=== PATIENT | female | born 1950 | race Caucasian/White ===

== ENCOUNTER 2017-01-14 10:46 | Outpatient (CLI) | payer MEDICARE, OTHER ==
[2017-01-14 13:33] LABS: BASOPHILS # (AUTO) 0.1 10^3/uL (0.0-0.1); BASOPHILS % (AUTO) 0.5 %; EOSINOPHILS # (AUTO) 0.3 10^3/uL (0.0-0.7); EOSINOPHILS % (AUTO) 3.3 %; HCT - HEMATOCRIT 42.6 % (37.0-47.0); HGB - HEMOGLOBIN 14.2 g/dL (12.0-16.0); LYMPHOCYTES # (AUTO) 1.6 10^3/uL (1.5-3.5); LYMPHOCYTES % (AUTO) 15.8 %; MEAN CORPUSCULAR HEMOGLOBIN 27.6 pg (27.0-31.0); MEAN CORPUSCULAR HGB CONC 33.3 g/dL (32.0-36.0); MEAN CORPUSCULAR VOLUME 82.9 fL (81.0-99.0); MEAN PLATELET VOLUME 9.5 fL (7.9-10.8); MONOCYTES # (AUTO) 0.7 10^3/uL (0.0-1.0); MONOCYTES % (AUTO) 7.5 %; NEUTROPHILS # (AUTO) 7.1 10^3/uL (1.5-6.6); NEUTROPHILS % (AUTO) 72.9 %; NUCLEATED RED BLOOD CELLS AUTO 0.1 /100WBC; RED BLOOD COUNT 5.14 10^6/uL (4.20-5.40); RED CELL DISTRIBUTION WIDTH 14.8 % (12.0-15.0); UNCORRECTED WHITE BLOOD COUNT 9.8 x10^3/uL; WHITE BLOOD COUNT 9.8 x10^3/uL (4.8-10.8)
[2017-01-14 13:49] LABS: ALBUMIN/GLOBULIN RATIO 1.3 (1.0-2.2); BILIRUBIN,TOTAL 0.7 mg/dL (0.2-1.0); CALCIUM 8.9 mg/dL (8.5-10.3); CREATININE 0.7 mg/dL (0.4-1.0); POTASSIUM 4.1 mmol/L (3.5-5.0); TOTAL PROTEIN 6.8 g/dL (6.7-8.2)
== END 2017-01-14 10:47 | disposition home or self-care (01) ==
LOC: LAB.WCP 10:46
PROVIDERS: ATTEND Internal Medicine Gastroenterology
DX: K50.00 Crohn's disease of small intestine without complications (principal)
CPT/HCPCS: 36415; 80053; 85025

== ENCOUNTER 2017-01-22 14:53 | Outpatient (CLI) | payer MEDICARE, OTHER ==
[2017-01-22 19:18] LABS: CHOLESTEROL 137 mg/dL; HDL CHOLESTEROL 46 mg/dL; LDL/HDL RATIO 1.7 (<4.4); TRIGLYCERIDES 67 mg/dL; VLDL CHOLESTEROL 13 mg/dL
== END 2017-01-22 14:54 | disposition home or self-care (01) ==
LOC: LAB.WCP 14:53
PROVIDERS: ATTEND Family Medicine
DX: Z00.00 Encounter for general adult medical examination without abnormal findings (principal); E78.5 Hyperlipidemia, unspecified
CPT/HCPCS: 36415; 80061

== ENCOUNTER 2017-04-29 15:53 | Outpatient (CLI) | payer MEDICARE, OTHER ==
--- NOTE | 2017-05-03 13:56 | Mammography Report ---
DIGITAL SCREENING MAMMOGRAM: 04/29/2017 CLINICAL INDICATION: A 66-year-old, for screening. COMPARISON: 04/2016, 08/2013, 04/2012. TECHNIQUE: Routine CC and MLO projections were obtained of the breasts. FINDINGS: Parenchymal tissue within the breasts is predominantly fatty replaced. There are no domina nt masses, suspicious microcalcifications, or secondary signs of malignancy. In comparison to the pre vious studies, there are no significant changes. IMPRESSION: NO MAMMOGRAPHIC EVIDENCE OF MALIGNANCY. NO SIGNIFICANT INTERVAL CHANGES. RECOMMENDATION: Screening mammography is recommended annually. BIRADS category 1 - negative. STANDARD QUALIFYING STATEMENTS 1. This examination was reviewed with the aid of Computed-Aided Detection (CAD). 2. A negative or benign imaging report should not delay biopsy if clinically suspicious findings are present. Consider surgical consultation if warranted. More than 5% of cancers are not identified by i maging. 3. Dense breasts may obscure an underlying neoplasm. JOB #: [id number] EXT JOB #:[id number]
== END 2017-04-29 15:54 | disposition home or self-care (01) ==
LOC: DI 15:53
PROVIDERS: ATTEND Family Medicine
DX: Z12.31 Encounter for screening mammogram for malignant neoplasm of breast (principal)
CPT/HCPCS: 77067

== ENCOUNTER 2017-12-01 10:53 | Outpatient (CLI) | payer MEDICARE, OTHER ==
[2017-12-01 18:40] LABS: BASOPHILS # (AUTO) 0.1 10^3/uL (0.0-0.1); BASOPHILS % (AUTO) 0.8 %; EOSINOPHILS # (AUTO) 0.2 10^3/uL (0.0-0.7); EOSINOPHILS % (AUTO) 2.3 %; HGB - HEMOGLOBIN 13.9 g/dL (12.0-16.0); LYMPHOCYTES # (AUTO) 1.7 10^3/uL (1.5-3.5); MEAN CORPUSCULAR HEMOGLOBIN 26.5 pg (27.0-31.0); MEAN CORPUSCULAR HGB CONC 32.2 g/dL (32.0-36.0); MEAN CORPUSCULAR VOLUME 82.2 fL (81.0-99.0); MEAN PLATELET VOLUME 9.5 fL (7.9-10.8); MONOCYTES # (AUTO) 0.6 10^3/uL (0.0-1.0); MONOCYTES % (AUTO) 6.6 %; NEUTROPHILS # (AUTO) 5.9 10^3/uL (1.5-6.6); NEUTROPHILS % (AUTO) 70.3 %; PLT - PLATELET COUNT 259 10^3/uL (130-450); RED BLOOD COUNT 5.27 10^6/uL (4.20-5.40); RED CELL DISTRIBUTION WIDTH 15.9 % (12.0-15.0); WHITE BLOOD COUNT 8.4 x10^3/uL (4.8-10.8)
[2017-12-01 18:53] LABS: ALBUMIN 3.9 g/dL (3.2-5.5); ALBUMIN/GLOBULIN RATIO 1.3 (1.0-2.2); ALKALINE PHOSPHATASE 103 IU/L (42-121); ALT ALANINE AMINOTRANSFERASE 16 IU/L (10-60); AST ASPARTATE AMINOTRANSFERASE 20 IU/L (10-42); BILIRUBIN,TOTAL 0.7 mg/dL (0.2-1.0); BUN - BLOOD UREA NITROGEN 14 mg/dL (6-20); CALCIUM 8.9 mg/dL (8.5-10.3); CARBON DIOXIDE - CO2 25 mmol/L (21-32); CHLORIDE 102 mmol/L (101-111); CHOL/HDL RATIO 3.1 (<4.4); CHOLESTEROL 175 mg/dL; CREATININE 0.7 mg/dL (0.4-1.0); GFR - MDRD 83 (>89); GLUCOSE 79 mg/dL (70-100); HDL CHOLESTEROL 56 mg/dL; LDL CHOLESTEROL,CALCULATED 100 mg/dL; LDL/HDL RATIO 1.8 (<4.4); SODIUM 137 mmol/L (135-145); VLDL CHOLESTEROL 19 mg/dL
== END 2017-12-01 10:54 | disposition home or self-care (01) ==
LOC: LAB.WCP 10:53
PROVIDERS: ATTEND Family Medicine
DX: R03.0 Elevated blood-pressure reading, without diagnosis of hypertension (principal); E78.5 Hyperlipidemia, unspecified; K50.90 Crohn's disease, unspecified, without complications; E55.9 Vitamin D deficiency, unspecified
CPT/HCPCS: 36415; 80053; 80061; 82306; 83721; 85025

== ENCOUNTER 2018-06-30 10:05 | Outpatient (CLI) | payer MEDICARE, OTHER ==
[2018-06-30 13:01] LABS: ALBUMIN/GLOBULIN RATIO 1.4 (1.0-2.2); ALKALINE PHOSPHATASE 112 IU/L (42-121); ALT ALANINE AMINOTRANSFERASE 16 IU/L (10-60); AST ASPARTATE AMINOTRANSFERASE 17 IU/L (10-42); BILIRUBIN,TOTAL 0.7 mg/dL (0.2-1.0); BUN - BLOOD UREA NITROGEN 15 mg/dL (6-20); CALCIUM 8.8 mg/dL (8.5-10.3); CARBON DIOXIDE - CO2 25 mmol/L (21-32); CHLORIDE 102 mmol/L (101-111); CHOL/HDL RATIO 3.8 (<4.4); CHOLESTEROL 200 mg/dL; CREATININE 0.7 mg/dL (0.4-1.0); GFR - MDRD 83 (>89); GLUCOSE 95 mg/dL (70-100); HDL CHOLESTEROL 52 mg/dL; LDL CHOLESTEROL,CALCULATED 125 mg/dL; LDL/HDL RATIO 2.4 (<4.4); SODIUM 137 mmol/L (135-145); TOTAL PROTEIN 6.8 g/dL (6.7-8.2); VLDL CHOLESTEROL 23 mg/dL
== END 2018-06-30 23:59 ==
LOC: LAB.WCP 10:05
PROVIDERS: ATTEND Family Medicine
DX: E78.5 Hyperlipidemia, unspecified (principal)
CPT/HCPCS: 36415; 80053; 80061; 83721

== ENCOUNTER 2018-11-28 11:43 | Outpatient (CLI) | payer MEDICARE, OTHER | END 2018-11-28 11:44 | disposition home or self-care (01) | LOC: LAB 11:43 | PROVIDERS: ATTEND Family Medicine | DX: R68.84 Jaw pain (principal) | CPT/HCPCS: 36415; 84484 ==

== ENCOUNTER 2018-12-23 08:00 | Outpatient (CLI) | payer MEDICARE, OTHER ==
[2018-12-23 13:19] LABS: H. PYLORIS ANTIGEN STL NEGATIVE (Negative)
== END 2018-12-23 08:01 | disposition home or self-care (01) ==
LOC: LAB.R 08:00
PROVIDERS: ATTEND Family Medicine
DX: R19.7 Diarrhea, unspecified (principal); K50.90 Crohn's disease, unspecified, without complications; K21.9 Gastro-esophageal reflux disease without esophagitis
CPT/HCPCS: 87338

== ENCOUNTER 2018-12-23 12:42 | Outpatient (CLI) | payer MEDICARE, OTHER ==
[2018-12-23 13:05] LABS: BASOPHILS # (AUTO) 0.1 10^3/uL (0.0-0.1); BASOPHILS % (AUTO) 0.4 %; EOSINOPHILS # (AUTO) 0.3 10^3/uL (0.0-0.7); EOSINOPHILS % (AUTO) 2.4 %; HGB - HEMOGLOBIN 14.7 g/dL (12.0-16.0); LYMPHOCYTES # (AUTO) 1.7 10^3/uL (1.5-3.5); LYMPHOCYTES % (AUTO) 14.2 %; MEAN CORPUSCULAR HGB CONC 31.7 g/dL (32.0-36.0); MEAN CORPUSCULAR VOLUME 85.1 fL (81.0-99.0); MEAN PLATELET VOLUME 10.5 fL (7.9-10.8); MONOCYTES # (AUTO) 0.6 10^3/uL (0.0-1.0); MONOCYTES % (AUTO) 4.9 %; NEUTROPHILS % (AUTO) 77.6 %; PLT - PLATELET COUNT 253 10^3/uL (130-450); RED BLOOD COUNT 5.45 10^6/uL (4.20-5.40); RED CELL DISTRIBUTION WIDTH 14.6 % (12.0-15.0); WHITE BLOOD COUNT 11.6 x10^3/uL (4.8-10.8)
[2018-12-23 13:22] LABS: ALBUMIN/GLOBULIN RATIO 1.3 (1.0-2.2); BILIRUBIN,TOTAL 0.8 mg/dL (0.2-1.0); CALCIUM 9.2 mg/dL (8.5-10.3); CREATININE 0.5 mg/dL (0.4-1.0)
== END 2018-12-23 12:43 | disposition home or self-care (01) ==
LOC: LAB 12:42
PROVIDERS: ATTEND Family Medicine
DX: R19.7 Diarrhea, unspecified (principal); K50.90 Crohn's disease, unspecified, without complications; K21.9 Gastro-esophageal reflux disease without esophagitis
CPT/HCPCS: 36415; 80053; 82150; 83690; 85025; 87338

== ENCOUNTER 2019-12-01 11:27 | Outpatient (CLI) | payer MEDICARE, OTHER ==
--- NOTE | 2019-12-01 11:35 | XRAY Report ---
Reason: BILATERAL WRIST PAIN Procedure Date: 12/01/2019 Accession Number: [id number] / [id number] Procedure: WCP - Wrist 3 View BILAT CPT Code: Final Report FULL RESULT: PROCEDURE: Wrist 3 View BILAT INDICATIONS: BILATERAL WRIST PAIN TECHNIQUE: 3 views of each wrist were acquired. COMPARISON: None FINDINGS: Bones: No fractures or dislocations. No suspicious bony lesions. Joint space narrowing and periarticular osteophyte formation at the radiocarpal, scaphotrapezial, and carpal metacarpal joints bilaterally. There is widening of the left scapholunate interval, suggestive of scapholunate ligamentous injury. There is greater than expected for a large tilt of the left lunate. Scaphoid view: Not requested Soft tissues: No suspicious soft tissue calcifications. IMPRESSION: 1. Bilateral osteoarthritis. 2. Findings suggestive of left scapholunate ligamentous injury, as well as possible left volar intercalated segmental instability. This could be further assessed with MRI arthrography, if clinically indicated. Reviewed by: Amparo Gorman MD on 12/01/2019 11:34 AM PDT Approved by: Amparo Gorman MD on 12/01/2019 11:34 AM PDT Station ID: [id number]
== END 2019-12-01 23:59 | disposition home or self-care (01) ==
LOC: DI.WCP 11:27
PROVIDERS: ATTEND Family Medicine
DX: M19.032 Primary osteoarthritis, left wrist (principal); M19.031 Primary osteoarthritis, right wrist; R93.6 Abnormal findings on diagnostic imaging of limbs

== ENCOUNTER 2020-05-21 10:18 | Outpatient (CLI) | payer MEDICARE, OTHER ==
--- NOTE | 2020-05-21 14:11 | XRAY Report ---
PROCEDURE: Shoulder 2 View RT INDICATIONS: RIGHT SHOULDER PAIN TECHNIQUE: 3 views of the shoulder were acquired. COMPARISON: None. FINDINGS: Bones: No fractures or dislocations. No suspicious bony lesions. Visualized ribs appear intact. S evere acromioclavicular degenerative narrowing is present. Mild glenohumeral narrowing is present. Soft tissues: No suspicious soft tissue calcifications. IMPRESSION: Degenerative changes most severe at the acromioclavicular joint space. Reviewed by: Heidy Trotter MD on 05/21/2020 2:10 PM PST Approved by: Heidy Trotter MD on 05/21/2020 2:10 PM PST Station ID: [id number]
== END 2020-05-21 23:59 | disposition home or self-care (01) ==
LOC: DI.WCP 10:18
PROVIDERS: ATTEND Family Medicine
DX: M19.011 Primary osteoarthritis, right shoulder (principal); E78.5 Hyperlipidemia, unspecified; E66.9 Obesity, unspecified; R04.0 Epistaxis; Z11.59 Encounter for screening for other viral diseases
CPT/HCPCS: 36415; 80053; 80061; 83036; 83721; 85025; 86803

== ENCOUNTER 2020-05-21 10:47 | Outpatient (CLI) | payer MEDICARE, OTHER ==
[2020-05-21 18:34] LABS: BASOPHILS # (AUTO) 0.1 10^3/uL (0.0-0.1); BASOPHILS % (AUTO) 0.4 %; EOSINOPHILS # (AUTO) 0.2 10^3/uL (0.0-0.7); EOSINOPHILS % (AUTO) 1.3 %; HGB - HEMOGLOBIN 15.3 g/dL (12.0-16.0); LYMPHOCYTES # (AUTO) 1.9 10^3/uL (1.5-3.5); LYMPHOCYTES % (AUTO) 16.4 %; MEAN CORPUSCULAR HEMOGLOBIN 27.7 pg (27.0-31.0); MEAN CORPUSCULAR VOLUME 89.2 fL (81.0-99.0); MEAN PLATELET VOLUME 11.4 fL (7.9-10.8); MONOCYTES # (AUTO) 0.8 10^3/uL (0.0-1.0); MONOCYTES % (AUTO) 7.1 %; NEUTROPHILS # (AUTO) 8.4 10^3/uL (1.5-6.6); NEUTROPHILS % (AUTO) 74.2 %; PLT - PLATELET COUNT 273 10^3/uL (130-450); RED BLOOD COUNT 5.53 10^6/uL (4.20-5.40); WHITE BLOOD COUNT 11.4 x10^3/uL (4.8-10.8)
[2020-05-21 18:46] LABS: ALBUMIN 3.9 g/dL (3.2-5.5); ALBUMIN/GLOBULIN RATIO 1.3 (1.0-2.2); ALKALINE PHOSPHATASE 99 IU/L (42-121); ALT ALANINE AMINOTRANSFERASE 16 IU/L (10-60); AST ASPARTATE AMINOTRANSFERASE 16 IU/L (10-42); BILIRUBIN,TOTAL 0.8 mg/dL (0.2-1.0); BUN - BLOOD UREA NITROGEN 21 mg/dL (6-20); CARBON DIOXIDE - CO2 24 mmol/L (21-32); CHLORIDE 103 mmol/L (101-111); CHOL/HDL RATIO 4.1 (<4.4); CHOLESTEROL 240 mg/dL; CREATININE 0.7 mg/dL (0.4-1.0); GLUCOSE 94 mg/dL (70-100); HDL CHOLESTEROL 58 mg/dL; LDL CHOLESTEROL,CALCULATED 163 mg/dL; LDL/HDL RATIO 2.8 (<4.4); SODIUM 138 mmol/L (135-145); TOTAL PROTEIN 6.9 g/dL (6.7-8.2); VLDL CHOLESTEROL 19 mg/dL
[2020-05-21 20:36] LABS: HEMOGLOBIN A1c% 5.6 % (4.27-6.07)
[2020-05-22 12:58] LABS: HEPATITIS C ANTIBODY NON-REACTIVE (NON-REACTIVE)
== END 2020-05-21 23:59 | disposition home or self-care (01) ==
LOC: LAB.WCP 10:47
PROVIDERS: ATTEND Family Medicine
DX: E78.5 Hyperlipidemia, unspecified (principal); E66.9 Obesity, unspecified; R04.0 Epistaxis; Z11.59 Encounter for screening for other viral diseases
CPT/HCPCS: 36415; 80053; 80061; 83036; 83721; 85025; 86803

== ENCOUNTER 2020-06-19 08:07 | Outpatient (CLI) | payer MEDICARE, OTHER ==
--- NOTE | 2020-06-19 09:31 | DEXA Report ---
PROCEDURE: Dexa Spine and/or Hip INDICATIONS: POST MENOPAUSAL TECHNIQUE: Dual energy x-ray absorptiometry (DXA) was performed on a [employer] System. Regions measur ed are the AP Spine, femoral neck, and if needed forearm. COMPARISON: None. FINDINGS: Lumbar Spine: Bone Mineral Density 0.948 g/cm/cm,T score -1.9 Left Hip: Bone Mineral Density 0.923 g/cm/cm, T score -0.7 Left Femoral Neck: Bone Mineral Density 0.865 g/cm/cm, T score -1.2 (T score greater or equal to -1.0: NORMAL) (T score from -1.1 to -2.4: OSTEOPENIA) (T score less than or equal to -2.5 to: OSTEOPOROSIS) IMPRESSION: Osteopenia in the lumbar spine and left femoral neck. Patients with diagnosis of osteoporosis or osteopenia should have regular bone mineral density assess ment. For those eligible for Medicare, routine testing is allowed once every 2 years. Testing frequ ency can be increased for patients who have rapidly progressing disease or for those who are receivin g medical therapy to restore bone mass. Reviewed by: Ciro Jansen MD on 06/19/2020 8:30 AM MARIE Approved by: Ciro Jansen MD on 06/19/2020 8:[address] [facility] Station ID: [id number]
== END 2020-06-19 08:08 | disposition home or self-care (01) ==
LOC: DI 08:07
PROVIDERS: ATTEND Family Medicine
DX: M85.89 Other specified disorders of bone density and structure, multiple sites (principal); Z78.0 Asymptomatic menopausal state

== ENCOUNTER 2020-08-02 13:52 | Outpatient (CLI) | payer MEDICARE, OTHER ==
--- NOTE | 2020-08-05 11:45 | Mammography Report ---
BILATERAL DIGITAL SCREENING MAMMOGRAM 3D/2D: 08/02/2020 CLINICAL: Routine screening. Comparison is made to exams dated: 04/29/2017 mammogram, 04/20/2016 mammogram, and 04/25/2012 mammogr am - [facility]. The tissue of both breasts is predominantly fatty. No significant masses, calcifications, or other findings are seen in either breast. There has been no significant interval change. IMPRESSION: NEGATIVE There is no mammographic evidence of malignancy. A 1 year screening mammogram is recommended. This exam was interpreted at Station ID: [id number]. NOTE: For mammograms, a report in lay terms will be sent to the patient. Approximately 15% of breast malignancies will not be visualized mammographically. In the management of a palpable breast mass, a negative mammogram must not discourage biopsy of a clinically suspicious lesion. Electronically Signed By: Beltran Myers acr/penrad:08/02/2020 15:11:45 ACR BI-RADS Category 1: Negative 3341F PARENCHYMAL PATTERN: (F) - The breast(s) demonstrate(s) diffuse fatty replacement. BI-RADS CATEGORY: (1) - 1 RECOMMENDATION: (ANNUAL) - Recommend routine annual screening mammography. [id number] 1 year screening LATERALITY: (B)
== END 2020-08-02 13:53 | disposition home or self-care (01) ==
LOC: DI 13:52
DX: Z12.31 Encounter for screening mammogram for malignant neoplasm of breast (principal)

== ENCOUNTER 2021-01-14 08:17 | Outpatient (CLI) | payer MEDICARE, OTHER | END 2021-01-14 23:59 | disposition home or self-care (01) | LOC: LAB.WCP 08:17 | PROVIDERS: ATTEND Internal Medicine Gastroenterology | DX: K50.90 Crohn's disease, unspecified, without complications (principal) | CPT/HCPCS: 81335; 81599 ==

== ENCOUNTER 2021-07-30 07:35 | Outpatient (CLI) | payer MEDICARE, OTHER ==
[2021-07-30 12:30] LABS: BASOPHILS # (AUTO) 0.1 10^3/uL (0.0-0.1); BASOPHILS % (AUTO) 0.4 %; EOSINOPHILS # (AUTO) 0.1 10^3/uL (0.0-0.7); EOSINOPHILS % (AUTO) 0.8 %; HCT - HEMATOCRIT 45.7 % (37.0-47.0); HGB - HEMOGLOBIN 14.5 g/dL (12.0-16.0); LYMPHOCYTES # (AUTO) 1.8 10^3/uL (1.5-3.5); LYMPHOCYTES % (AUTO) 13.3 %; MEAN CORPUSCULAR HGB CONC 31.7 g/dL (32.0-36.0); MEAN CORPUSCULAR VOLUME 85.1 fL (81.0-99.0); MEAN PLATELET VOLUME 11.8 fL (7.9-10.8); MONOCYTES # (AUTO) 0.7 10^3/uL (0.0-1.0); MONOCYTES % (AUTO) 5.3 %; NEUTROPHILS # (AUTO) 10.7 10^3/uL (1.5-6.6); NEUTROPHILS % (AUTO) 79.7 %; PLT - PLATELET COUNT 317 10^3/uL (130-450); RED BLOOD COUNT 5.37 10^6/uL (4.20-5.40); RED CELL DISTRIBUTION WIDTH 14.6 % (12.0-15.0); WHITE BLOOD COUNT 13.4 x10^3/uL (4.8-10.8)
[2021-07-30 12:46] LABS: ALBUMIN 4.1 g/dL (3.2-5.5); ALBUMIN/GLOBULIN RATIO 1.5 (1.0-2.2); ALKALINE PHOSPHATASE 102 IU/L (42-121); ALT ALANINE AMINOTRANSFERASE 17 IU/L (10-60); AST ASPARTATE AMINOTRANSFERASE 16 IU/L (10-42); BILIRUBIN,TOTAL 0.9 mg/dL (0.2-1.0); BUN - BLOOD UREA NITROGEN 17 mg/dL (6-20); CALCIUM 9.1 mg/dL (8.5-10.3); CARBON DIOXIDE - CO2 27 mmol/L (21-32); CHLORIDE 103 mmol/L (101-111); CHOL/HDL RATIO 2.5 (<4.4); CHOLESTEROL 142 mg/dL; CREATININE 0.8 mg/dL (0.4-1.0); GFR - MDRD 70 (>89); GLUCOSE 109 mg/dL (70-100); HDL CHOLESTEROL 56 mg/dL; LDL CHOLESTEROL,CALCULATED 75 mg/dL; LDL/HDL RATIO 1.3 (<4.4); POTASSIUM 4.5 mmol/L (3.5-5.0); SODIUM 140 mmol/L (135-145); TOTAL PROTEIN 6.9 g/dL (6.7-8.2); TRIGLYCERIDES 56 mg/dL; VLDL CHOLESTEROL 11 mg/dL
[2021-07-30 12:57] LABS: THYROID STIMULATING HORMONE 2.11 uIU/mL (0.34-5.60)
== END 2021-07-30 07:36 | disposition home or self-care (01) ==
LOC: LAB.N 07:35
PROVIDERS: ATTEND Family Medicine
DX: E78.5 Hyperlipidemia, unspecified (principal); Z13.29 Encounter for screening for other suspected endocrine disorder
CPT/HCPCS: 36415; 80053; 80061; 83721; 84443; 85025

== ENCOUNTER 2021-09-12 08:00 | Outpatient (CLI) | payer MEDICARE, OTHER | END 2021-09-12 23:59 | disposition home or self-care (01) | LOC: LAB.N 08:00 | PROVIDERS: ATTEND Nurse Practitioner | DX: R30.0 Dysuria (principal) | CPT/HCPCS: 87086; 87181 ==

== ENCOUNTER 2021-09-22 08:39 | Outpatient (CLI) | payer MEDICARE, OTHER ==
[2021-09-22 12:11] LABS: BASOPHILS # (AUTO) 0.1 10^3/uL (0.0-0.1); BASOPHILS % (AUTO) 0.4 %; EOSINOPHILS # (AUTO) 0.2 10^3/uL (0.0-0.7); EOSINOPHILS % (AUTO) 1.5 %; HCT - HEMATOCRIT 45.2 % (37.0-47.0); HGB - HEMOGLOBIN 14.1 g/dL (12.0-16.0); LYMPHOCYTES # (AUTO) 1.9 10^3/uL (1.5-3.5); LYMPHOCYTES % (AUTO) 14.2 %; MEAN CORPUSCULAR HEMOGLOBIN 26.8 pg (27.0-31.0); MEAN CORPUSCULAR HGB CONC 31.2 g/dL (32.0-36.0); MEAN CORPUSCULAR VOLUME 85.9 fL (81.0-99.0); MEAN PLATELET VOLUME 11.6 fL (7.9-10.8); MONOCYTES # (AUTO) 0.7 10^3/uL (0.0-1.0); MONOCYTES % (AUTO) 5.5 %; NEUTROPHILS # (AUTO) 10.4 10^3/uL (1.5-6.6); NEUTROPHILS % (AUTO) 77.1 %; PLT - PLATELET COUNT 305 10^3/uL (130-450); RED BLOOD COUNT 5.26 10^6/uL (4.20-5.40); RED CELL DISTRIBUTION WIDTH 14.7 % (12.0-15.0); WHITE BLOOD COUNT 13.5 x10^3/uL (4.8-10.8)
[2021-09-22 12:44] LABS: ALBUMIN 4.2 g/dL (3.2-5.5); ALBUMIN/GLOBULIN RATIO 1.3 (1.0-2.2); BILIRUBIN,TOTAL 1.1 mg/dL (0.2-1.0); CALCIUM 9.3 mg/dL (8.5-10.3); CREATININE 0.7 mg/dL (0.4-1.0); POTASSIUM 4.3 mmol/L (3.5-5.0); TOTAL PROTEIN 7.5 g/dL (6.7-8.2)
== END 2021-09-22 08:40 | disposition home or self-care (01) ==
LOC: LAB.N 08:39
DX: K50.90 Crohn's disease, unspecified, without complications (principal)
CPT/HCPCS: 36415; 80053; 85025

== ENCOUNTER 2021-10-28 09:16 | Outpatient (CLI) | payer MEDICARE, OTHER ==
[2021-10-28 11:37] LABS: BASOPHILS # (AUTO) 0.1 10^3/uL (0.0-0.1); BASOPHILS % (AUTO) 0.5 %; EOSINOPHILS # (AUTO) 0.2 10^3/uL (0.0-0.7); EOSINOPHILS % (AUTO) 1.7 %; HCT - HEMATOCRIT 44.4 % (37.0-47.0); HGB - HEMOGLOBIN 13.9 g/dL (12.0-16.0); LYMPHOCYTES # (AUTO) 2.2 10^3/uL (1.5-3.5); LYMPHOCYTES % (AUTO) 19.8 %; MEAN CORPUSCULAR HEMOGLOBIN 27.1 pg (27.0-31.0); MEAN CORPUSCULAR HGB CONC 31.3 g/dL (32.0-36.0); MEAN CORPUSCULAR VOLUME 86.5 fL (81.0-99.0); MEAN PLATELET VOLUME 11.2 fL (7.9-10.8); MONOCYTES % (AUTO) 8.5 %; NEUTROPHILS # (AUTO) 7.6 10^3/uL (1.5-6.6); NEUTROPHILS % (AUTO) 68.4 %; PLT - PLATELET COUNT 323 10^3/uL (130-450); RED BLOOD COUNT 5.13 10^6/uL (4.20-5.40); WHITE BLOOD COUNT 11.1 x10^3/uL (4.8-10.8)
[2021-10-28 12:52] LABS: ALBUMIN 3.8 g/dL (3.2-5.5); ALBUMIN/GLOBULIN RATIO 1.3 (1.0-2.2); ALKALINE PHOSPHATASE 122 IU/L (42-121); ALT ALANINE AMINOTRANSFERASE 18 IU/L (10-60); AST ASPARTATE AMINOTRANSFERASE 15 IU/L (10-42); BILIRUBIN,TOTAL 0.7 mg/dL (0.2-1.0); BUN - BLOOD UREA NITROGEN 22 mg/dL (6-20); CALCIUM 8.9 mg/dL (8.5-10.3); CARBON DIOXIDE - CO2 24 mmol/L (21-32); CHLORIDE 107 mmol/L (101-111); CREATININE 0.8 mg/dL (0.4-1.0); GFR - MDRD 70 (>89); GLUCOSE 114 mg/dL (70-100); POTASSIUM 3.6 mmol/L (3.5-5.0); SODIUM 141 mmol/L (135-145); TOTAL PROTEIN 6.7 g/dL (6.7-8.2)
[2021-10-28 12:53] LABS: CRP - C-REACTIVE PROTEIN < 1.0 mg/dL (0-1.0)
== END 2021-10-28 09:17 | disposition home or self-care (01) ==
LOC: LAB.N 09:16
PROVIDERS: ATTEND Physician Assistant
DX: K50.90 Crohn's disease, unspecified, without complications (principal)
CPT/HCPCS: 36415; 80053; 85025; 86140; 86708

== ENCOUNTER 2022-01-08 08:00 | Outpatient (CLI) | payer MEDICARE, OTHER | END 2022-01-08 23:59 | disposition home or self-care (01) | LOC: LAB.N 08:00 | PROVIDERS: ATTEND Registered Nurse | DX: N39.0 Urinary tract infection, site not specified (principal) | CPT/HCPCS: 87077; 87086; 87181 ==

== ENCOUNTER 2022-02-13 08:00 | Outpatient (CLI) | payer MEDICARE, OTHER | END 2022-02-13 23:59 | disposition home or self-care (01) | LOC: LAB.N 08:00 | PROVIDERS: ATTEND Family Medicine | DX: N39.0 Urinary tract infection, site not specified (principal) | CPT/HCPCS: 87086; 87181 ==

== ENCOUNTER 2022-04-03 10:56 | Outpatient (CLI) | payer MEDICARE, OTHER ==
--- NOTE | 2022-04-03 13:07 | XRAY Report ---
PROCEDURE: Wrist 3 View RT INDICATIONS: PAIN IN RIGHT WRIST TECHNIQUE: 3 views of the wrist were acquired. COMPARISON: Wrist radiographs 12/01/2019 FINDINGS: Bones: No acute fractures or dislocations. No suspicious bony lesions. Severe degenerative changes are seen at the carpometacarpal joint with subchondral sclerosis, marginal osteophyte formation, and remodeling of the articular surfaces as well as joint space narrowing. Degenerative changes are also seen at the triscaphe the radiocarpal articulations. Cystic changes are seen within the distal ulna and ulnar styloid. There is generalized osteopenia. Soft tissues: No suspicious soft tissue calcifications. IMPRESSION: Degenerative changes in the wrists are worst and severe at the first carpometacarpal joint, and appea r mildly progressed when compared to the radiographs from 12/01/2019. Reviewed by: Jorden Nails MD on 04/03/2022 1:05 PM PDT Approved by: Jorden Nails MD on 04/03/2022 1:05 PM PDT Station ID: [id number]
== END 2022-04-03 10:57 | disposition home or self-care (01) ==
LOC: DI 10:56
PROVIDERS: ATTEND Registered Nurse
DX: M19.031 Primary osteoarthritis, right wrist (principal)

== ENCOUNTER 2022-07-24 13:15 | Outpatient (CLI) | payer MEDICARE, OTHER ==
--- NOTE | 2022-07-27 09:50 | Mammography Report ---
BILATERAL DIGITAL SCREENING MAMMOGRAM 3D/2D: 07/24/2022 CLINICAL: Routine screening. Comparison is made to exams dated: 08/02/2020 mammogram, 04/29/2017 mammogram, and 04/20/2016 mammogra m - [facility]. Both breasts are almost entirely fatty (category a/<25% glandular tissue). No significant masses, calcifications, or other findings are seen in either breast. There has been no significant interval change. IMPRESSION: NEGATIVE There is no mammographic evidence of malignancy. A 1 year screening mammogram is recommended. Based on the Tyrer Cuzick model (a risk assessment model) the patients lifetime risk is 2.4% and her 10 year risk is 2.2%. According to the ACR, ACS, and NCCN guidelines, an annual breast MRI exam blaze g with mammogram is recommended if the patients lifetime risk is 20% or greater. This exam was interpreted at Station ID: [id number]. NOTE: For mammograms, a report in lay terms will be sent to the patient. Approximately 15% of breast malignancies will not be visualized mammographically. In the management of a palpable breast mass, a negative mammogram must not discourage biopsy of a clinically suspicious lesion. Electronically Signed By: Genaro Mcdaniel M.D., jr/nuria:07/24/2022 15:11:01 ACR BI-RADS Category 1: Negative 3341F PARENCHYMAL PATTERN: (F) - The breast(s) demonstrate(s) diffuse fatty replacement. BI-RADS CATEGORY: (1) - 1 RECOMMENDATION: (ANNUAL) - Recommend routine annual screening mammography. [id number] 1 year screening LATERALITY: (B)
== END 2022-07-24 13:16 | disposition home or self-care (01) ==
LOC: DI 13:15
DX: Z12.31 Encounter for screening mammogram for malignant neoplasm of breast (principal)

== ENCOUNTER 2022-10-20 08:45 | Outpatient (CLI) | payer MEDICARE, OTHER ==
[2022-10-20 09:37] VITALS: BP 117/64
--- NOTE | 2022-10-20 09:37 | SLEEP CARE CONSULTATION ---
Information from patient questionnaire entered by Vianney Jimenez. I have reviewed and concur with the information entered by Vianney Jimenez. This document represents the service I personally performed and the decisions made by me, Yumiko Calderon ARNP. History of Present Illness Service Date and Time: 10/20/2022 0845 Reason for Visit: New patient Accompanied by: Spouse (Genaro) Chief Complaint: reports: Excessive daytime sleepiness, Observed pauses in breathing, Fatigue Date of Onset: 6-12 MONTHS Usual bedtime: 11PM Time it takes to fall asleep: 5-10MIN Snores at night: Yes Observed to quit breathing while asleep: Yes Sleeps alone due to snoring: No Number of times waking at night: 1-2 Reasons for waking at night: reports: Pain (occasinally), Bathroom. denies: Choking, Snoring, Gasping for air Toss, Turn, or Twitch while sleeping: Yes Recalls having dreams: Yes Usually gets out of bed at: 7-8AM Feels refreshed in the morning: Yes (sometimes) Morning headache: No Sleepy or fatigued during the day: No Ever fallen asleep while driving: No Takes day naps: Yes (3-4 times a week, 1 hour) Prior sleep studies: No Additional HPI information: I had the pleasure of seeing GABRIEL PRICE today regarding the possibility of her having a sleep disorder. Her current complaints are excessive daytime sleepiness and fatigue. She states she gets up at night and is not sleeping well. She had a knee replacement 4 weeks ago. Her has told her that she stoppled breathing sometimes. She will snore occasionally. She does not always wake up feeling refreshed. - Parasomnia Symptoms Ever been unable to move upon waking from sleep: No Walks in sleep: No Talks in sleep: No Ever acted out dreams in sleep: No Ever felt weak in the knees when startled or emotional: No Bothered by creepy, crawly, restless sensations in legs: No Problems with memory or concentration: Yes (occasionally) Subjective Initial [place] Sleepiness Scale score: 8 (08/25/22) Past Medical History Past Medical History: reports: Other (CROHNS, MIGRAINES; occ heartburn; lindsay knee replacements; borderline Htn, pancreatitis with atrial fibrillation) Social History The patient's occupation is a RE. Patient is and lives in [place]. Have you smoked in the past 12 months: No Alcohol use: Yes Alcohol amount and frequency: 1 GLASS A WEEK Caffeine use: Yes Caffeine amount and frequency: COFFEE 1-2 CUPS DAILY Family History Family history of sleep disordered breathing: Yes Family Hx Sleep Apnea: Father: Snoring Allergies and Home Medications Known drug allergies: Yes (SULFUR) Drug allergies reviewed: Yes Home medication list reviewed: Yes Allergy and home medication list: Allergies Sulfa (Sulfonamide Antibiotics) Adverse Reaction (Mild, Verified 10/19/22 08:35) Anxiety Hyperactivity Medications: HCTZ Pantoprozole Eliquis Atorvastatin Metroprolol Despiramine Vitamin D Fish oil Entybio infusin for crohns Review of Systems Weight gain over past 5 years: 5 Weight loss over past 5 years: 5 Cardiovascular: reports: leg or foot swelling. denies: high blood pressure Gastrointestinal: reports: nausea, diarrhea Neurological: reports: headaches Psychiatric: denies: anxiety, depression Ear/Nose/Throat: reports: sinus problems, tonsillectomy, wisdom teeth removed Endocrine: reports: too hot or cold Musculoskeletal: reports: neck pain Immunologic: reports: sneezing Physical Exam Vital signs obtained and entered by: DAVID Sanches Blood Pressure: 117/64 (left arm) Cuff size: long Heart Rate: 80 O2 Saturation: 99 Height: 5 ft 5 in Weight: 224 lb Body Mass Index: 37.3 BMI Classification: Obese Neck circumference: 14.5 Mouth and throat: narrow oropharynx Soft palate: long Hard palate: normal Uvula: normal Uvula visualization: 25% Mallampati Class III Tongue: enlarged in size with teeth dean on lateral edges Tonsils: absent bilaterally Neck: normal w/o lymphadenopathy or thyromegaly Heart: regular rate and rhythm Lungs: clear bilaterally Impression and Plan 1. Suspected Obstructive Sleep Apnea-Hypopnea Syndrome, as suggested by a history of irregular snoring, observed cessation of breath while asleep, unrefreshed sleep, cognitive impairment, and excessive daytime sleepiness. Narrow oropharynx and obesity are common predisposing factors for obstructive sleep apnea-hypopnea syndrome. I recommend proceeding to polysomnography to confirm the diagnosis and to assess severity. If the patient has significant sleep disordered breathing, a manual CPAP titration study will also be performed to find the optimal treatment pressure. I informed the patient of what the sleep studies involve and after some discussion, obtained agreement to proceed. The pathophysiology of obstructive sleep apnea-hypopnea syndrome was discussed with the patient and health risks of cardiovascular and cerebrovascular disease if not treated. Risks of drowsy driving discussed in detail and patient advised to avoid long distance driving and to extractor puller at the first sign of drowsiness. Patient agreed to plan. * Schedule polysomnography +- manual CPAP titration study and return in 1-2 weeks after the study to discuss result and initiate therapy. * Avoid long distance driving or driving when feeling sleepy. * Avoid alcohol, sedative and muscle relaxant around bedtime. * Attempt to lose weight. * Review instructions provided by trained office staff on how to prepare for the sleep study. * Return for follow-up after sleep study completed. Counseling Topics: Weight loss health impact Visit Type: In Office Other Participants: Spouse/Significant Other Time Spent with Patient (minutes): 36 Provider Statement: I spent 100% of the Face to Face Visit with the patient with greater than 50% spent counseling the patient and coordination of care.
== END 2022-10-20 08:46 | disposition home or self-care (01) ==
LOC: SC 08:45
PROVIDERS: ATTEND Nurse Practitioner Family
DX: G47.10 Hypersomnia, unspecified (principal); R41.89 Other symptoms and signs involving cognitive functions and awareness; G47.8 Other sleep disorders; R06.81 Apnea, not elsewhere classified; R06.83 Snoring; E66.9 Obesity, unspecified; Z68.37 Body mass index [BMI] 37.0-37.9, adult
CPT/HCPCS: 99203; G0463; 99212

== ENCOUNTER 2022-10-27 20:31 | Outpatient (CLI) | payer MEDICARE, OTHER | END 2022-10-27 20:32 | disposition home or self-care (01) | LOC: SC 20:31 | PROVIDERS: ATTEND Nurse Practitioner Family | DX: G47.33 Obstructive sleep apnea (adult) (pediatric) (principal); R09.02 Hypoxemia | CPT/HCPCS: 95810 ==

== ENCOUNTER 2022-11-18 11:33 | Outpatient (CLI) | payer MEDICARE, OTHER ==
--- NOTE | 2022-11-18 15:26 | SLEEP CARE CONSULTATION ---
Information from patient questionnaire entered by Vianney Jimenez. I have reviewed and concur with the information entered by Vianney Jimenez. This document represents the service I personally performed and the decisions made by me, Yumiko Calderon ARNP. History of Present Illness Service Date and Time: 11/18/2022 1133 Initial [place] Sleepiness Scale score: 8 Current [place] Sleepiness Scale score: 5 (11/18/22) Additional HPI information: GABRIEL PRICE returns for follow up and results of the recently performed polysomnography. I explained the pathophysiology behind obstructive sleep apnea. We then spent quite a bit of time discussing different treatment options. For mild obstructive sleep apnea, surgery and oral appliance are alternatives to nasal CPAP therapy but in moderate or severe cases, nasal CPAP is the most effective and reliable treatment. I reviewed the impact of weight changes on sleep apnea and strongly recommended losing weight. After some discussion, the patient opted to go with the nasal CPAP therapy. Nasal autoCPAP set at 4-15 cmH20 will be ordered with rationale explained. A manual titration study will be ordered if unable to find optimal pressure with office adjustments. I explained how CPAP machine works and what to expect when using the machine. Using CPAP every night in order to get used to it was emphasized. Patient advised to put CPAP mask on before getting into bed so as not to fall asleep without CPAP. To assist acclimation to CPAP use, it could also be used for a short time during day while reading or watching TV. The patient was instructed to call the CPAP supplier to discuss any mechanical problem that may occur. If the mask given is uncomfortable or is difficult to keep on through the night even with adjustment, contact the CPAP supplier as many will replace with another mask style if notified before 30 days. If snoring or perceives is not getting enough air or too much air from the machine, notify this office. Patient was cautioned about risks of drowsy driving until sleepiness symptoms resolve. Sleep Study - Results Type of Sleep Study: Polysomnography (COMPLETED 10/27/22) Prior sleep studies: No Polysomnography/Home Sleep Study results: IMPRESSION: The quality of the study is good. The patient had reduced sleep eff iciency due to prolonged awakening in the middle of the night. The sleep architecture was abnormal for sleep fragmentation and reduced amount of time spent in REM and slow wave sleep (N3). Respiratory monitoring showed moderate obstructive sleep apnea-hypopnea (AHI = 25.6) associated with frequent arousals, oxyhemoglobin desaturation and severe hypoxia (nicole oxygen saturation of 52%). Baseline oxygen saturation was 90% but occasionally down to 87%. The respiratory events occurred predominantly during supine REM sleep (supine AHI = 29.3; non-supine = 20.78). Snore was moderate to loud in intensity. There was no significant periodic leg movement of sleep. Cardiac rhythm was normal sinus rhythm with occasional mild sinus tachycardia. No abnormal behavior (parasomnia) observed during the night. Allergies and Home Medications Known drug allergies: Yes (sulfa) Drug allergies reviewed: Yes Home medication list reviewed: Yes (no changes) Allergy and home medication list: Allergies Sulfa (Sulfonamide Antibiotics) Adverse Reaction (Mild, Verified 11/17/22 13:42) Anxiety Hyperactivity Review of Systems Review of systems same as previous: Yes (no changes) Physical Exam Vital signs obtained and entered by: VIANNEY Cheema MA Blood Pressure: 126/80 (LEFT ARM) Cuff size: regular Heart Rate: 84 O2 Saturation: 96 Height: 5 ft 5 in Weight: 222 lb 12.8 oz Body Mass Index: 37.0 BMI Classification: Obese Impression and Plan 1. Obstructive Sleep Apnea-Hypopnea Syndrome, moderate, with lowest oxygen saturation of 52%. Obviously this is the cause of the patients symptoms of unrefreshed sleep, and excessive daytime sleepiness. Positive pressure therapy could benefit borderline hypertension, atrial fibrillation and migraines. As mentioned above, the patient will be started on nasal autoCPAP therapy with pressure set at 4-15 cmH2O. A manual titration study will be completed if unable to find optimal treatment pressure with office adjustments. Compliance guidelines also reviewed. A copy of compliance guidelines will be given for reference at check out. 2. Hypoxemia, severe. Patient had baseline oxygen level at 90% with occasional desaturation to 87% and nicole oxygen saturation of 54%. She spent 89.1 minutes under 90% during the study. She was advised to follow up with dimension warehouse supervisor for further evaluation of nocturnal hypoxemia. * Nasal auto CPAP therapy, pressure at 4-15 cm H2O. * Attempt to lose weight. * Avoid alcohol consumption near bedtime. * Avoid supine sleep until using CPAP. * The patient is again cautioned about driving until sleepiness completely resolves. * Return one month after CPAP obtained. I will assess response to therapy and compliance at that time. Counseling Topics: Weight loss health impact Visit Type: In Office Time Spent with Patient (minutes): 24 Provider Statement: I spent 100% of the Face to Face Visit with the patient with greater than 50% spent counseling the patient and coordination of care.
[2022-11-18 15:28] VITALS: BP 126/80
== END 2022-11-18 11:34 | disposition home or self-care (01) ==
LOC: SC 11:33
PROVIDERS: ATTEND Nurse Practitioner Family
DX: G47.33 Obstructive sleep apnea (adult) (pediatric) (principal); R09.02 Hypoxemia; E66.9 Obesity, unspecified; Z68.37 Body mass index [BMI] 37.0-37.9, adult
CPT/HCPCS: 99213; G0463; 99212

== ENCOUNTER 2022-12-21 07:31 | Outpatient (CLI) | payer MEDICARE, OTHER ==
[2022-12-21 13:45] LABS: CHOL/HDL RATIO 2.8 (<4.4); CHOLESTEROL 142 mg/dL; HDL CHOLESTEROL 50 mg/dL; LDL CHOLESTEROL,CALCULATED 72 mg/dL; LDL/HDL RATIO 1.4 (<4.4); TRIGLYCERIDES 100 mg/dL; VLDL CHOLESTEROL 20 mg/dL
== END 2022-12-21 07:32 | disposition home or self-care (01) ==
LOC: LAB.N 07:31
PROVIDERS: ATTEND Physician Assistant
DX: E78.5 Hyperlipidemia, unspecified (principal); Z13.220 Encounter for screening for lipoid disorders
CPT/HCPCS: 36415; 80061; 83721

== ENCOUNTER 2022-12-24 12:17 | Outpatient (CLI) | payer MEDICARE, OTHER ==
--- NOTE | 2022-12-24 13:25 | DEXA Report ---
PROCEDURE: Dexa Spine and/or Hip INDICATIONS: POST MENOPAUSAL TECHNIQUE: Dual energy x-ray absorptiometry (DXA) was performed on a [employer] System. Regions measur ed are the AP Spine, femoral neck, and if needed forearm. COMPARISON: 06/19/2020 FINDINGS: Lumbar Spine: Bone Mineral Density 0.95 g/cm/cm,T score -2.0. Osteopenia Left Femoral Neck: Bone Mineral Density 0.91 g/cm/cm, T score -0.8. Normal bone density Impression: By WHO criteria, this patient has lumbar spine osteopenia and normal left femoral neck bone density. Patients with diagnosis of osteoporosis or osteopenia should have regular bone mineral density assess ment. For those eligible for Medicare, routine testing is allowed once every 2 years. Testing frequ ency can be increased for patients who have rapidly progressing disease or for those who are receivin g medical therapy to restore bone mass. Reviewed by: Amparo Gorman MD on 12/24/2022 1:24 PM PDT Approved by: Amparo Gorman MD on 12/24/2022 1:24 PM PDT Station ID: [id number]
== END 2022-12-24 12:18 | disposition home or self-care (01) ==
LOC: DI 12:17
PROVIDERS: ATTEND Physician Assistant
DX: Z78.0 Asymptomatic menopausal state (principal); M85.88 Other specified disorders of bone density and structure, other site

== ENCOUNTER 2023-02-16 12:33 | Outpatient (CLI) | payer MEDICARE, OTHER ==
--- NOTE | 2023-02-16 13:20 | Sleep Patient Instructions ---
Sleep Center Visit Summary - Patient Visit Information Reason for Visit: First Compliance visit for PAP therapy - Patient Instructions Additional Instructions: You were here for follow up of CPAP therapy. You will be continued on CPAP therapy with pressure at 8-12 cmH2O. Please let us know if the pressure change is uncomfortable and we can make further adjustments of the pressure. You should follow up with sleep care in 1-2 months. You may contact us sooner for any questions or concerns. - Clinic Information Contact: [facility] [address] [place] [address] [email or web address] T: [phone]
--- NOTE | 2023-02-16 13:24 | SLEEP CARE CONSULTATION ---
Information from patient questionnaire entered by Jose Alfredo Jimenez. I have reviewed and concur with the information entered by Jose Alfredo Jimenez. This document represents the service I personally performed and the decisions made by , Yumiko Calderon ARNP. History of Present Illness Service Date and Time: 02/16/2023 1233 Previous diagnosis: Moderate, Obstructive Sleep Apnea-Hypopnea Syndrome AHI: 25.6 (10/2022) Reason for follow up: first compliance Equipment type: CPAP (RESMED Airsense 11, s/u 11/2022) Equipment obtained from: [employer] (got initial supplies) Mask style: Nasal (over the nose) Mask brand: Resmed (AirTouch N20, needs small cushion) Backup mask available: No (will keep old mask when replaced) Last cushion change: 1 month Prior sleep studies: No Type of Sleep Study: Polysomnography (COMPLETED 10/27/22) HPI additional information: GABRIEL PRICE was diagnosed to have moderate, AHI 25.6, obstructive sleep apnea- hypopnea syndrome and returned today for CPAP therapy first compliance follow- up. Sleep Study - Results Type of Sleep Study: Polysomnography (COMPLETED 10/27/22) Prior sleep studies: No CPAP Compliance Data - Data Reviewed with Patient Average duration of nightly device use: 7 HRS 3 MINS Compliance rate %: 97 (01/13/23-02/11/23; 30/30 days used) Current pressure setting (cmH2O): 4-15 (median 7.7, avg 10.5, max 12) Average residual AHI: 0.7 Central apnea: 0 Obstructive apnea: 0.2 Hypopnea: 0.4 Average large leak: 1.8 L/min Subjective Patient concerns: reports: mask discomfort (pillow comining up to eyes and lower on chin), condensation in mask/hose, other (nasal mask cushion too big and headgear puts pressure on back of neck area). denies: aerophagia, air blowing in eyes, mask leak noise, nasal congestion, dry mouth, nose, throat, epistaxis Observed to snore while using device: No Current pressure setting perceived as: comfortable On therapy, patient: reports: other (not feeling much difference). denies: drowsiness while driving Initial [place] Sleepiness Scale score: 8 Current [place] Sleepiness Scale score: 5 (02/16/23) Allergies and Home Medications Known drug allergies: Yes (sulfa) Drug allergies reviewed: Yes Home medication list reviewed: Yes (no changes) Allergy and home medication list: Allergies Sulfa (Sulfonamide Antibiotics) Adverse Reaction (Mild, Verified 02/12/23 09:41) Anxiety Hyperactivity Review of Systems Review of systems same as previous: Yes (no changes) Physical Exam Vital signs obtained and entered by: JOSE ALFREDO Cheema MA Blood Pressure: 126/70 (LEFT ARM) Cuff size: regular Heart Rate: 96 O2 Saturation: 76 Height: 5 ft 5 in Weight: 228 lb 6.4 oz Body Mass Index: 38.0 BMI Classification: Obese Impression and Plan 1. Obstructive Sleep Apnea-Hypopnea Syndrome, moderate, with good treatment compliance and good apnea control. She does not feel a big difference in sleep or restfulness. She has noted that she is not getting up for the bathroom as often during the night. Her [place] reduced from 8/24 to 5/24. She has been using a ResMed AirTouch N20 mask, medium cushion and it will come up to her eyes and down into her top lip. I had her put on and it looks like the cushion is too big. I advised her to call and get them to send her a small cushion for her mask. She voiced understanding and agreement with plan. The patients pressure will be changed to autoCPAP 8-12 cmH20 to reflect pressure being used. Patient advised to contact me if pressure change is uncomfortable so that it can be adj usted. Goals for apnea control discussed. Patient's apnea severity and rationale for treatment to reduce apnea, improve sleep quality and reduce cardiovascular and cerebrovascular events was reviewed. I also reviewed the benefit of consistent device use of CPAP for borderline hypertension, arrhythmia and migraines. 2. Obesity, unspecified. Currently patients BMI is 38.0. Obesity increases the risk of apnea, CPAP pressure requirements and overall health risks especially cardiovascular and diabetes. Thus patient is advised to lose weight. * Change auto CPAP pressure to 8-12 cmH2O * Notify me if snoring with mask or feeling that the pressure is too much or too little * Attempt to lose weight * Call this office if any problems using CPAP * Return for follow up in 1-2 months, or sooner if concerns arise Counseling Topics: Spare mask, Weight loss health impact Visit Type: In Office Time Spent with Patient (minutes): 28 Provider Statement: I spent 100% of the Face to Face Visit with the patient with greater than 50% spent counseling the patient and coordination of care.
[2023-02-16 13:30] VITALS: BP 126/70; O2SAT 76
== END 2023-02-16 12:34 | disposition home or self-care (01) ==
LOC: SC 12:33
PROVIDERS: ATTEND Nurse Practitioner Family
DX: G47.33 Obstructive sleep apnea (adult) (pediatric) (principal); E66.9 Obesity, unspecified; Z68.38 Body mass index [BMI] 38.0-38.9, adult
CPT/HCPCS: 99213; G0463; 99212

== ENCOUNTER 2023-04-06 10:53 | Outpatient (CLI) | payer MEDICARE, OTHER ==
--- NOTE | 2023-04-06 11:33 | Sleep Patient Instructions ---
Sleep Center Visit Summary - Patient Visit Information Reason for Visit: 6-week follow-up - Patient Instructions Additional Instructions: You were here for follow up of CPAP therapy. You will be continued on CPAP therapy with pressure at 8-12 cmH2O. You should follow up with sleep care in 3 months. You may contact us sooner for any questions or concerns. - Clinic Information Contact: [facility] [address] [place] [address] [email or web address] T: [phone]
--- NOTE | 2023-04-06 11:37 | SLEEP CARE CONSULTATION ---
Information from patient questionnaire entered by Vianney Jimenez. I have reviewed and concur with the information entered by Vianney Jimenez. This document represents the service I personally performed and the decisions made by , Yumiko Calderon ARNP. History of Present Illness Service Date and Time: 04/06/2023 1053 Previous diagnosis: Moderate, Obstructive Sleep Apnea-Hypopnea Syndrome AHI: 25.6 (10/2022) Reason for follow up: other (6 WEEK F/U ) Equipment type: CPAP (RESMED Airsense 11, s/u 11/2022) Equipment obtained from: [email or web address] ([employer] supplies) Mask style: Nasal (over the nose, small cushion) Mask brand: Resmed (N20) Backup mask available: No Last cushion change: 3 weeks Prior sleep studies: No Type of Sleep Study: Polysomnography (COMPLETED 10/27/22) HPI additional information: GABRIEL PRICE was diagnosed to have moderate, AHI 25.6, obstructive sleep apnea- hypopnea syndrome and returned today for CPAP therapy six week with pressure change follow-up. Sleep Study - Results Type of Sleep Study: Polysomnography (COMPLETED 10/27/22) Prior sleep studies: No CPAP Compliance Data - Data Reviewed with Patient Average duration of nightly device use: 6 HRS 45 MIN Compliance rate %: 100 (02/17/23-04/01/23; 44/44 days used) Current pressure setting (cmH2O): 8-12 Average residual AHI: 0.9 Central apnea: 0 Obstructive apnea: 0.3 Average large leak: 5 L/min Subjective Patient concerns: reports: mask discomfort (some), condensation in mask/hose (in mask), dry mouth, nose, throat (dry mouth). denies: aerophagia, air blowing in eyes, mask leak noise, nasal congestion, epistaxis Observed to snore while using device: No Current pressure setting perceived as: comfortable On therapy, patient: reports: sleeping better, awakening more refreshed, being more awake and alert during the day, more rested overall. denies: drowsiness while driving Initial [place] Sleepiness Scale score: 8 Current [place] Sleepiness Scale score: 4 Allergies and Home Medications Known drug allergies: Yes (as listed) Drug allergies reviewed: Yes Home medication list reviewed: Yes (no changes) Allergy and home medication list: Allergies Sulfa (Sulfonamide Antibiotics) Adverse Reaction (Mild, Verified 04/05/23 09:20) Anxiety Hyperactivity Review of Systems Review of systems same as previous: Yes (no changes) Physical Exam Vital signs obtained and entered by: YUMIKO VILLEGAS Blood Pressure: 142/68 Cuff size: wrist (left) Heart Rate: 73 O2 Saturation: 99 Height: 5 ft 5 in Weight: 232 lb Body Mass Index: 38.6 BMI Classification: Obese Impression and Plan 1. Obstructive Sleep Apnea-Hypopnea Syndrome, moderate, with good treatment compliance and good apnea control. On CPAP therapy, the patient has better sleep quality and is more rested overall. She states that pressure more uncomfortable after the pressure was changed but she is getting used to it. I checked her data online and it appears her ramp was turned off. I turned the ramp starting pressure on again at 4 cmH2O for 15-minute ramp time for patient comfort. She has been getting a little condensation in her mask. I adjusted her heated hose up one to 82 degrees. She will let me know if any of these adjustments is uncomfortable. I will have her return in 3 months for followup. Patient's apnea severity and rationale for treatment to reduce apnea, improve sleep quality and reduce cardiovascular and cerebrovascular events was reviewed. I also reviewed the benefit of consistent device use of CPAP for borderline hypertension, arrhyt hmia and migraines. 2. Obesity, unspecified. Currently patients BMI is 38.6. Obesity increases the risk of apnea, CPAP pressure requirements and overall health risks especially cardiovascular and diabetes. Thus patient is advised to lose weight. * Continue auto CPAP pressure at 8-12 cmH2O * Notify me if snoring with mask or feeling that the pressure is too much or too little * Attempt to lose weight * Call this office if any problems using CPAP * Return for follow up in 3 months, or sooner if concerns arise Counseling Topics: Spare mask, Weight loss health impact Follow up with Sleep Care in: 3 months Visit Type: In Office Time Spent with Patient (minutes): 21 Provider Statement: I spent 100% of the Face to Face Visit with the patient with greater than 50% spent counseling the patient and coordination of care.
[2023-04-06 11:44] VITALS: BP 142/68; O2SAT 99
== END 2023-04-06 10:54 | disposition home or self-care (01) ==
LOC: SC 10:53
PROVIDERS: ATTEND Nurse Practitioner Family
DX: G47.33 Obstructive sleep apnea (adult) (pediatric) (principal); E66.9 Obesity, unspecified; Z68.38 Body mass index [BMI] 38.0-38.9, adult
CPT/HCPCS: 99213; G0463; 99212

== ENCOUNTER 2023-07-08 11:34 | Outpatient (CLI) | payer MEDICARE, OTHER ==
--- NOTE | 2023-07-08 12:09 | Sleep Patient Instructions ---
Sleep Center Visit Summary - Patient Visit Information Reason for Visit: 3 months follow-up after pressure change - Patient Instructions Additional Instructions: You were here for follow up of CPAP therapy. You will be continued on CPAP therapy with pressure at 8-12 cmH2O. You should follow up with sleep care in 12 months. You may contact us sooner for any questions or concerns. - Clinic Information Contact: [facility] [address] [place] [id number] [email or web address] T: [phone]
--- NOTE | 2023-07-08 12:13 | SLEEP CARE CONSULTATION ---
Information from patient questionnaire entered by Vianney Jimenez. I have reviewed and concur with the information entered by Vianney Jimenez. This document represents the service I personally performed and the decisions made by , Yumiko Calderon ARNP. History of Present Illness Service Date and Time: 07/08/2023 1134 Previous diagnosis: Moderate, Obstructive Sleep Apnea-Hypopnea Syndrome AHI: 25.6 Reason for follow up: three month (FU) Equipment type: CPAP (RESMED Airsense 11, s/u 11/2022) Equipment obtained from: [employer] (some supply issues but getting supplies) Mask style: Nasal Mask brand: Resmed (Airfit N20) Backup mask available: Yes Last cushion change: 3 weeks Prior sleep studies: No Type of Sleep Study: Polysomnography (COMPLETED 10/27/22) HPI additional information: GABRIEL PRICE was diagnosed to have moderate, AHI 25.6, obstructive sleep apnea- hypopnea syndrome and returned today for CPAP therapy three month follow-up. Sleep Study - Results Type of Sleep Study: Polysomnography (COMPLETED 10/27/22) Prior sleep studies: No CPAP Compliance Data - Data Reviewed with Patient Average duration of nightly device use: 6 HRS 21 MINS Compliance rate %: 96 (04/07/23-07/05/23; 88/90 days used) Current pressure setting (cmH2O): 8-12 Average residual AHI: 0.6 Central apnea: 0 Obstructive apnea: 0.2 Hypopnea: 0.3 Average large leak: 4.4 L/min Subjective Missed days of use due to: reports: illness (nasal congestion, unable to breath through nose), other (youth overnight, up late) Patient concerns: reports: dry mouth, nose, throat (dry mouth). denies: aerophagia, mask discomfort, air blowing in eyes, mask leak noise, condensation in mask/hose, nasal congestion, epistaxis Observed to snore while using device: No Current pressure setting perceived as: comfortable On therapy, patient: reports: sleeping better, awakening more refreshed, being more awake and alert during the day, more rested overall. denies: drowsiness while driving Initial [place] Sleepiness Scale score: 8 Current [place] Sleepiness Scale score: 5 Allergies and Home Medications Known drug allergies: Yes (sulfa) Drug allergies reviewed: Yes Home medication list reviewed: Yes (no changes) Allergy and home medication list: Allergies Sulfa (Sulfonamide Antibiotics) Adverse Reaction (Mild, Verified 07/06/23 13:50) Anxiety Hyperactivity Review of Systems Review of systems same as previous: Yes (therapy for neck/shoulder for compressed discs in neck) Physical Exam Vital signs obtained and entered by: NELLY JOYCE Blood Pressure: 131/74 Cuff size: regular (right arm) Heart Rate: 73 O2 Saturation: 98 Height: 5 ft 5 in Weight: 232 lb 6.4 oz Body Mass Index: 38.7 BMI Classification: Obese Impression and Plan 1. Obstructive Sleep Apnea-Hypopnea Syndrome, moderate, with good treatment compliance and good apnea control. On CPAP therapy, the patient has better sleep quality and is more rested overall. She says that she is moving in August to get closer to [employer]. Patient has significant improvement of their sleep apnea and is satisfied with current CPAP therapy. Patient denies problems with oral dryness, nasal congestion, epistaxis, skin irritation or aerophagia. Patient is comfortable with CPAP use and with a follow-up in about a year. I encouraged her to establish with a sleep provider once she is settled in her new home. She voiced understanding. Patient's apnea severity and rationale for treatment to reduce apnea, improve sleep quality and reduce cardiovascular and cerebrovascular events was reviewed. I also reviewed the benefit of consistent device use of CPAP for borderline hypertension, arrhythmia and migraines. 2. Obesity, unspecified. Currently patients BMI is 38.7. Obesity increases the risk of apnea, CPAP pressure requirements and overall health risks especially cardiovascular and diabetes. Thus patient is advised to lose weight. * Continue auto CPAP pressure at 8-12 cmH2O * Notify me if snoring with mask or feeling that the pressure is too much or too little * Attempt to lose weight * Call this office if any problems using CPAP * Return for follow up in 12 months, or sooner if concerns arise Counseling Topics: Spare mask, Weight loss health impact Follow up with Sleep Care in: 1 year Visit Type: In Office Time Spent with Patient (minutes): 20 Provider Statement: I spent 100% of the Face to Face Visit with the patient with greater than 50% spent counseling the patient and coordination of care.
[2023-07-08 12:15] VITALS: BP 131/74; O2SAT 98
== END 2023-07-08 11:35 | disposition home or self-care (01) ==
LOC: SC 11:34
PROVIDERS: ATTEND Nurse Practitioner Family
DX: G47.33 Obstructive sleep apnea (adult) (pediatric) (principal); E66.9 Obesity, unspecified; Z68.38 Body mass index [BMI] 38.0-38.9, adult
CPT/HCPCS: 99213; G0463; 99212